=== PATIENT | male | born 1995 | race Hispanic/Latino ===

== ENCOUNTER 2017-06-11 22:24 | Emergency (ER) | payer MEDICAID ==
[2017-06-11 22:37] VITALS: BP 114/59; PULSE 73; RESP 16; TEMP 98.7; O2SAT 100
--- NOTE | 2017-06-11 23:20 | ED PDOC ---
Lower Extremity Pain/Injury Time Seen by Provider: 06/11/17 22:42 Chief Complaint (Nursing): Lower Extremity Problem/Injury Chief Complaint (Provider): knee pain History Per: Patient (22 y/o male here with left knee swelling noted today. Denies any fall/trauma. Coaches sports intermittently.) Past Medical History Reviewed: Historical Data, Nursing Documentation, Vital Signs Vital Signs: Last Vital Signs Temp 98.7 F 06/11/17 22:34 Pulse 73 06/11/17 22:34 Resp 16 06/11/17 22:34 BP 114/59 L 06/11/17 22:34 Pulse Ox 100 06/11/17 22:34 - Family History Family History: States: Unknown Family Hx - Immunization History Hx Tetanus Toxoid Vaccination: No Hx Influenza Vaccination: No Hx Pneumococcal Vaccination: No - Home Medications Home Medications: Ambulatory Orders Medication Instructions Recorded Azithromycin [Zithromax Z-Miquel] 250 mg PO DAILY #1 packet 06/14/14 Ibuprofen [Motrin] 600 mg PO Q6H PRN #15 tab 06/11/15 Ibuprofen [Motrin] 600 mg PO TID PRN #30 tab 09/18/15 diaZEpam [Valium] 5 mg PO Q8 PRN #8 tab 09/18/15 Naproxen 1 tab PO Q12 PRN #14 tab 06/11/17 - Allergies Allergies/Adverse Reactions: Allergies Allergy/AdvReac Type Severity Reaction Status Date / Time No Known Allergies Allergy Verified 06/11/15 20:06 Review of Systems ROS Statement: Except As Marked, All Systems Reviewed And Found Negative Physical Exam - Reviewed Nursing Documentation Reviewed: Yes Vital Signs Reviewed: Yes - Physical Exam Appears: Positive for: Well, Non-toxic, No Acute Distress Head Exam: Positive for: ATRAUMATIC, NORMAL INSPECTION, NORMOCEPHALIC Skin: Positive for: Normal Color, Warm, DRY Eye Exam: Positive for: EOMI, Normal appearance, PERRL ENT: Positive for: Normal ENT Inspection Neck: Positive for: Normal, Painless ROM Cardiovascular/Chest: Positive for: Regular Rate, Rhythm Respiratory: Positive for: CNT, Normal Breath Sounds Gastrointestinal/Abdominal: Positive for: Normal Exam, Bowel Sounds, Soft Back: Positive for: Normal Inspection Extremity: Positive for: Normal ROM, Swelling (effusion noted mild left knee. No erythema) Neurologic/Psych: Positive for: Alert, Oriented - ECG O2 Sat by Pulse Oximetry: 100 - Progress ED Course And Treament: xry of knee: hardware noted intact Given knee immobilizer and crutch instructions Disposition - Clinical Impression Clinical Impression: Knee injury - Patient ED Disposition Is Patient to be Admitted: No - Disposition Referrals: Grecia Acosta MD [Staff Provider] - Disposition: Routine/Home Disposition Time: 23:19 Condition: FAIR Prescriptions: Naproxen 1 tab PO Q12 PRN #14 tab PRN Reason: Pain, Moderate (4-7) Instructions: Swollen Knee Joint (ED) Forms: [employer] ([place]), [facility] ED School/Work Excuse
--- NOTE | 2017-06-12 11:20 | RAD ---
PROCEDURE: Left Knee Radiographs. HISTORY: Pain. COMPARISON: Left knee radiographs dated 06/11/2015. FINDINGS: BONES: Medial and lateral metaphyseal fixation plate and screws, unchanged. No acute fracture. JOINTS: Unremarkable. JOINT EFFUSION: None. OTHER FINDINGS: None. IMPRESSION: No demonstrated acute fracture or dislocation. Orthopedic hardware intact.
== END 2017-06-11 23:30 | disposition home or self-care (01) ==
LOC: H.ER 22:24
DX: S89.92XA Unspecified injury of left lower leg, initial encounter (principal)